=== PATIENT | female | born 1950 | race African-American/Black ===

== ENCOUNTER 2020-06-23 12:23 | Inpatient (IN) | payer MEDICARE, MEDICAID ==
[2020-06-23] VITALS (7 sets, daily range): BP systolic 111–130; BP diastolic 68–78
[~2020-06-23] VITALS: Ht 165.1 cm; Wt 73.5 kg
[2020-06-23 15:16] LABS: HEMATOCRIT. 35.8 % (36.0-48.0); HEMOGLOBIN. 11.7 g/dL (12.0-16.0); MEAN CORPUSCULAR HEMOGLOBIN 26.5 pg (28.0-32.0); MEAN CORPUSCULAR VOLUME 81.1 fL (81.0-99.0); MEAN PLATELET VOLUME 6.4 fl (7.4-10.4); PLATELET 281 x1000/uL (130-400); RED BLOOD CELL COUNT 4.41 mill/uL (4.2-5.4); RED CELL DISTRIBUTION WIDTH 17.5 % (11.6-14.6)
[2020-06-23 15:20] LABS: CHLORIDE 105 mEq/L (98-107)
[2020-06-23 16:13] LABS: PLATELET ESTIMATE NORMAL
[2020-06-23] MEDS ORDERED: GADOTERATE MEGLUMINE 5 MMOL/10 ML VIAL IV ONE (19:12)
[2020-06-23] MEDS ORDERED: HYDRALAZINE 20MG/ML VIAL IV PRN (21:15)
[2020-06-23] MEDS ORDERED: ONDANSETRON HCL 4MG/2ML INJ IV PRN (21:15)
[2020-06-23] MEDS ORDERED: NICARDIPINE 100 MG in SODIUM CHLORIDE 0.9% 60 ML IV PRN (21:30)
[2020-06-23 21:58] LABS: BASOPHILS % 0.2 % (0.0-2.0); EOSINOPHILS % 2.1 % (0.0-5.0); HEMATOCRIT. 33.4 % (36.0-48.0); HEMOGLOBIN. 11.3 g/dL (12.0-16.0); LYMPHOCYTES % 14.1 % (20.0-50.0); MEAN CORPUSCULAR HEMOGLOBIN 27.6 pg (28.0-32.0); MEAN CORPUSCULAR VOLUME 81.7 fL (81.0-99.0); MEAN PLATELET VOLUME 6.4 fl (7.4-10.4); MONOCYTES % 7.8 % (2.0-8.0); NEUTROPHILS % 75.8 % (40.0-76.0); PLATELET 274 x1000/uL (130-400); RED BLOOD CELL COUNT 4.08 mill/uL (4.2-5.4); RED CELL DISTRIBUTION WIDTH 17.6 % (11.6-14.6)
[2020-06-23] MEDS: DEXT 5%/LACTATED RINGERS 1,000 ML IV SCH (22:12)
[2020-06-23 22:23] LABS: CHLORIDE 104 mEq/L (98-107)
[2020-06-23] MEDS ORDERED: ATOR10TA MT (22:30)
[2020-06-23] MEDS ORDERED: FLUO10CA28 MT (22:30)
[2020-06-23] MEDS: LEVETIRACETAM 500MG PREMIX 100 ML IV SCH (22:54)
[2020-06-23] MEDS: DEXAMETHASONE 4MG/ML 1ML VIAL IV SCH (23:00)
[2020-06-24] VITALS (48 sets, daily range): BP systolic 84–140; BP diastolic 16–100
[2020-06-24] MEDS: DEXAMETHASONE 4MG/ML 1ML VIAL IV SCH ×3 (05:11→17:51)
[2020-06-24] MEDS: LEVETIRACETAM 500MG PREMIX 100 ML IV SCH ×2 (08:58→20:26)
[2020-06-24 11:13] LABS: *BENZODIAZEPINES SCREEN URINE NEGATIVE (NEGATIVE); *COCAINE SCREEN URINE NEGATIVE (NEGATIVE)
[2020-06-24 11:14] LABS: *AMPHETAMINES SCREEN URINE NEGATIVE (NEGATIVE); *BARBITURATES SCREEN URINE NEGATIVE (NEGATIVE); CANNABINOID URINE SCREEN NEGATIVE (NEGATIVE); METHADONE URINE SCREEN NEGATIVE (NEGATIVE); OPIATES URINE SCREEN NEGATIVE (NEGATIVE); PHENCYCLIDINE URINE SCREEN NEGATIVE (NEGATIVE)
[2020-06-24] MEDS: ACETAMINOPHEN 325MG TABLET PO PRN (14:52)
[2020-06-24] MEDS: DEXT 5%/LACTATED RINGERS 1,000 ML IV SCH ×2 (14:53→21:00)
[2020-06-24] MEDS ORDERED: OMEP20TA15 MT (19:52)
[2020-06-24] MEDS: OMEPRAZOLE 20MG CAPSULE EXTENDED RELEASE PO SCH (20:26)
[2020-06-25] VITALS (52 sets, daily range): BP systolic 90–141; BP diastolic 46–95
[2020-06-25] MEDS ORDERED: IOHEXOL-300 100 ML BOTTLE ONE ×2 (00:56→02:10)
[2020-06-25] MEDS: DEXAMETHASONE 4MG/ML 1ML VIAL IV SCH ×4 (01:18→18:25)
[2020-06-25] MEDS: OMEPRAZOLE 20MG CAPSULE EXTENDED RELEASE PO SCH (05:21)
[2020-06-25 05:43] LABS: HEMATOCRIT. 33.4 % (36.0-48.0); HEMOGLOBIN. 10.9 g/dL (12.0-16.0); MEAN CORPUSCULAR HEMOGLOBIN 26.5 pg (28.0-32.0); MEAN CORPUSCULAR VOLUME 81.1 fL (81.0-99.0); MEAN PLATELET VOLUME 6.7 fl (7.4-10.4); PLATELET 278 x1000/uL (130-400); RED BLOOD CELL COUNT 4.11 mill/uL (4.2-5.4)
[2020-06-25 05:50] LABS: CHLORIDE 105 mEq/L (98-107)
[2020-06-25] MEDS: LEVETIRACETAM 500MG PREMIX 100 ML IV SCH ×2 (09:33→22:04)
[2020-06-25] MEDS: MORPHINE SULFATE 2 MG/ML CPJ (NOT FOR IM USE) IV PRN ×2 (11:39→19:03)
[2020-06-25 13:26] LABS: PROTHROMBIN TIME 10.9 sec (9.6-11.0)
[2020-06-25 13:47] LABS: PLATELET ESTIMATE NORMAL
[2020-06-25] MEDS: DEXT 5%/LACTATED RINGERS 1,000 ML IV SCH (19:00)
[2020-06-26] VITALS (70 sets, daily range): BP systolic 66–156; BP diastolic 26–97
[2020-06-26] MEDS: DEXAMETHASONE 4MG/ML 1ML VIAL IV SCH ×2 (01:22→13:51)
[2020-06-26] MEDS: MORPHINE SULFATE 2 MG/ML CPJ (NOT FOR IM USE) IV PRN ×5 (01:29→22:21)
[2020-06-26 05:41] LABS: HEMATOCRIT. 32.7 % (36.0-48.0); HEMOGLOBIN. 10.5 g/dL (12.0-16.0); MEAN CORPUSCULAR VOLUME 81.4 fL (81.0-99.0); MEAN PLATELET VOLUME 6.8 fl (7.4-10.4); PLATELET 293 x1000/uL (130-400); RED BLOOD CELL COUNT 4.02 mill/uL (4.2-5.4); RED CELL DISTRIBUTION WIDTH 17.8 % (11.6-14.6)
[2020-06-26 05:54] LABS: CHLORIDE 106 mEq/L (98-107)
[2020-06-26] MEDS: OMEPRAZOLE 20MG CAPSULE EXTENDED RELEASE PO SCH (06:30)
[2020-06-26] MEDS ORDERED: BACITRACIN 15GM TUBE TOP ONE (07:20)
[2020-06-26] MEDS ORDERED: BACITRACIN 50,000 UNITS/VIAL ONE (07:21)
[2020-06-26] MEDS ORDERED: THROMBIN (BOVINE) 5000 UNITS/VIAL TOP ONE (07:21)
[2020-06-26] MEDS: LEVETIRACETAM 500MG PREMIX 100 ML IV SCH ×2 (07:56→20:13)
[2020-06-26 10:16] LABS: PLATELET ESTIMATE NORMAL
[2020-06-26] MEDS ORDERED: NEOSTIGMINE METHYLSULFATE 1MG/ML 10 ML VIAL ONE (10:51)
[2020-06-26] MEDS ORDERED: MIDAZOLAM HCL 2 MG/2 ML VIAL ONE (10:51)
[2020-06-26] MEDS ORDERED: ROCURONIUM BROMIDE 10MG/ML VIAL 5ML IV ONE ×2 (10:51→10:52)
[2020-06-26] MEDS ORDERED: PROPOFOL 200MG/20ML VIAL IV ONE (10:51)
[2020-06-26] MEDS ORDERED: FENTANYL CITRATE/PF 50MCG/ML 2ML VIAL ONE (10:51)
[2020-06-26] MEDS ORDERED: GLYCOPYRROLATE 0.2 MG/ML 2ML VIAL ONE ×3 (10:51→12:30)
[2020-06-26] MEDS ORDERED: DEXAMETHASONE 4MG/ML 1ML VIAL ONE (11:04)
[2020-06-26] MEDS ORDERED: MANNITOL 20% 500 ML IV ONE (11:37)
[2020-06-26] MEDS ORDERED: ONDANSETRON HCL 4MG/2ML INJ ONE (11:44)
[2020-06-26] MEDS: CEFAZOLIN 1000MG PREMIX 50 ML IV SCH ×2 (13:42→21:34)
[2020-06-26] MEDS ORDERED: CEFAZOLIN SODIUM 1000MG/VIAL IV SCH (14:00)
[2020-06-26] MEDS: DEXT 5%/LACTATED RINGERS 1,000 ML IV SCH (16:10)
[2020-06-27] VITALS (93 sets, daily range): BP systolic 82–212; BP diastolic 41–151
[2020-06-27] MEDS: MORPHINE SULFATE 2 MG/ML CPJ (NOT FOR IM USE) IV PRN ×3 (01:54→06:04)
[2020-06-27] MEDS: OMEPRAZOLE 20MG CAPSULE EXTENDED RELEASE PO SCH (05:30)
[2020-06-27] MEDS: CEFAZOLIN 1000MG PREMIX 50 ML IV SCH ×3 (06:00→21:25)
[2020-06-27 07:49] LABS: BG BASE EXCESS 2.3 mmol/L (-2.0-2.0); BG CARBOXYHEMOGLOBIN 0.3 % (0.5-1.5); BG DEOXYHEMOGLOBIN 1.4 % (0.0-5.0); BG HCO3 ACT 27.1 mmol/L (22.0-26.0); BG METHEMOGLOBIN 0.3 % (0.0-1.5); BG OXYGEN SATURATION 98.6 % (92.0-98.5); BG PH 7.417 (7.350-7.450); BG PO2 153.6 mmHg (75.0-100.0); BG SAMPLE SITE ALINE; BG TOTAL HEMOGLOBIN 10.6 g/dL (12.0-18.0); BG VENT MODE VENT - AC
[2020-06-27] MEDS: MORPHINE SULFATE 4 MG/ML CPJ (NOT FOR IM USE) IV PRN ×6 (08:34→23:48)
[2020-06-27] MEDS: LEVETIRACETAM 500MG PREMIX 100 ML IV SCH ×2 (08:34→20:28)
[2020-06-27] MEDS: DEXT 5%/LACTATED RINGERS 1,000 ML IV SCH (09:13)
[2020-06-27 10:42] LABS: BG BASE EXCESS 3.1 mmol/L (-2.0-2.0); BG CARBOXYHEMOGLOBIN 0.3 % (0.5-1.5); BG DEOXYHEMOGLOBIN 1.3 % (0.0-5.0); BG FRACTION INSPIRED OXYGEN 50; BG HCO3 ACT 27.2 mmol/L (22.0-26.0); BG METHEMOGLOBIN 0.3 % (0.0-1.5); BG OXYGEN SATURATION 98.7 % (92.0-98.5); BG OXYHEMOGLOBIN 98.1 % (94.0-97.0); BG PCO2 39.8 mmHg (35.0-45.0); BG PH 7.453 (7.350-7.450); BG PO2 154.1 mmHg (75.0-100.0); BG SAMPLE SITE ALINE; BG VENT MODE VENT - CPAP
[2020-06-28] VITALS (47 sets, daily range): BP systolic 79–152; BP diastolic 47–114
[2020-06-28] MEDS: DEXT 5%/LACTATED RINGERS 1,000 ML IV SCH (03:14)
[2020-06-28] MEDS: MORPHINE SULFATE 4 MG/ML CPJ (NOT FOR IM USE) IV PRN ×5 (04:10→23:51)
[2020-06-28] MEDS: CEFAZOLIN 1000MG PREMIX 50 ML IV SCH ×2 (05:31→14:59)
[2020-06-28] MEDS: OMEPRAZOLE 20MG CAPSULE EXTENDED RELEASE PO SCH (05:31)
[2020-06-28] MEDS: LEVETIRACETAM 500MG PREMIX 100 ML IV SCH ×2 (09:28→20:58)
[2020-06-29] VITALS (25 sets, daily range): BP systolic 102–126; BP diastolic 53–76
[2020-06-29 05:55] LABS: CHLORIDE 103 mEq/L (98-107)
[2020-06-29 05:57] LABS: HEMATOCRIT. 30.9 % (36.0-48.0); HEMOGLOBIN. 10.1 g/dL (12.0-16.0); MEAN CORPUSCULAR HEMOGLOBIN 26.9 pg (28.0-32.0); MEAN CORPUSCULAR VOLUME 81.8 fL (81.0-99.0); MEAN PLATELET VOLUME 6.8 fl (7.4-10.4); PLATELET 265 x1000/uL (130-400); RED BLOOD CELL COUNT 3.77 mill/uL (4.2-5.4); RED CELL DISTRIBUTION WIDTH 17.6 % (11.6-14.6)
[2020-06-29] MEDS: OMEPRAZOLE 20MG CAPSULE EXTENDED RELEASE PO SCH (06:21)
[2020-06-29] MEDS: LEVETIRACETAM 500MG PREMIX 100 ML IV SCH ×2 (09:53→20:23)
[2020-06-29 12:58] LABS: PLATELET ESTIMATE NORMAL
[2020-06-29] MEDS: MORPHINE SULFATE 4 MG/ML CPJ (NOT FOR IM USE) IV PRN ×3 (14:12→22:17)
[2020-06-30] VITALS (16 sets, daily range): BP systolic 102–129; BP diastolic 30–74
[2020-06-30] MEDS: MORPHINE SULFATE 4 MG/ML CPJ (NOT FOR IM USE) IV PRN (03:48)
[2020-06-30 05:20] LABS: HEMATOCRIT. 31.2 % (36.0-48.0); HEMOGLOBIN. 10.2 g/dL (12.0-16.0); MEAN CORPUSCULAR HEMOGLOBIN 26.8 pg (28.0-32.0); MEAN CORPUSCULAR VOLUME 81.8 fL (81.0-99.0); MEAN PLATELET VOLUME 6.8 fl (7.4-10.4); PLATELET 269 x1000/uL (130-400); RED BLOOD CELL COUNT 3.82 mill/uL (4.2-5.4); RED CELL DISTRIBUTION WIDTH 17.8 % (11.6-14.6)
[2020-06-30 05:31] LABS: CHLORIDE 103 mEq/L (98-107)
[2020-06-30] MEDS: OMEPRAZOLE 20MG CAPSULE EXTENDED RELEASE PO SCH (05:41)
[2020-06-30] MEDS: LEVETIRACETAM 500MG PREMIX 100 ML IV SCH ×2 (09:11→21:53)
[2020-06-30] MEDS: DOCUSATE SODIUM 100MG CAPSULE PO SCH (09:11)
[2020-06-30] MEDS: MORPHINE SULFATE 2 MG/ML CPJ (NOT FOR IM USE) IV PRN ×2 (09:13→16:04)
[2020-06-30 11:28] LABS: PLATELET ESTIMATE NORMAL
[2020-06-30] MEDS ORDERED: HYDRALAZINE 10 MG in SODIUM CHLORIDE 0.9% 49.5 ML IV PRN (11:45)
[2020-06-30] MEDS: ACETAMINOPHEN 325MG TABLET PO PRN ×2 (16:08→21:53)
[2020-07-01] VITALS: BP 93/56
[2020-07-01 04:00] VITALS: BP 102/66
[2020-07-01] MEDS: ACETAMINOPHEN 325MG TABLET PO PRN ×2 (06:33→14:22)
[2020-07-01] MEDS: OMEPRAZOLE 20MG CAPSULE EXTENDED RELEASE PO SCH (06:34)
[2020-07-01 08:00] VITALS: BP 118/75
[2020-07-01] MEDS: DOCUSATE SODIUM 100MG CAPSULE PO SCH (09:50)
[2020-07-01] MEDS: LEVETIRACETAM 500MG PREMIX 100 ML IV SCH (10:40)
[2020-07-01 12:00] VITALS: BP 111/70
[2020-07-01 13:45] VITALS: BP 111/70
[2020-07-01] MEDS ORDERED: GADOTERATE MEGLUMINE 5 MMOL/10 ML VIAL IV ONE (13:58)
== END 2020-07-01 14:46 | DRG 25 ==
LOC: ER 12:46 → EDBEDREQ 17:27 → EDBEDREQSVC 17:27 → EDBEDREQTM 17:27 → EDBEDREQSVC 17:28 → EDBEDREQTM 17:28 → 3WST 17:32 → ENRESERV 19:57 → MICUSO 20:30 → 6EST 06-30 11:15
PROVIDERS: ADMIT Internal Medicine; ATTEND Internal Medicine
PROC: 00B00ZZ Excision of Brain, Open Approach (ICD-10-PCS; principal; 2020-06-26)
PROC: 0NR007Z Replacement of Skull with Autologous Tissue Substitute, Open Approach (ICD-10-PCS; 2020-06-26)
PROC: 00U207Z Supplement Dura Mater with Autologous Tissue Substitute, Open Approach (ICD-10-PCS; 2020-06-26)
PROC: 02HV33Z Insertion of Infusion Device into Superior Vena Cava, Percutaneous Approach (ICD-10-PCS; 2020-06-29)
PROC: B548ZZA Ultrasonography of Superior Vena Cava, Guidance (ICD-10-PCS; 2020-06-29)
DX: C79.31 Secondary malignant neoplasm of brain (principal); J96.00 Acute respiratory failure, unspecified whether with hypoxia or hypercapnia; G93.41 Metabolic encephalopathy; C34.90 Malignant neoplasm of unspecified part of unspecified bronchus or lung; F32.9 Major depressive disorder, single episode, unspecified; I10 Essential (primary) hypertension; R73.9 Hyperglycemia, unspecified; K21.9 Gastro-esophageal reflux disease without esophagitis; R26.9 Unspecified abnormalities of gait and mobility; Z20.822 Contact with and (suspected) exposure to COVID-19; G90.8 Other disorders of autonomic nervous system; Z51.5 Encounter for palliative care; J44.9 Chronic obstructive pulmonary disease, unspecified; Z85.118 Personal history of other malignant neoplasm of bronchus and lung; Z56.0 Unemployment, unspecified; Z87.891 Personal history of nicotine dependence; Z91.81 History of falling; Z92.3 Personal history of irradiation; Z98.1 Arthrodesis status
CPT/HCPCS: 36415; 36600; 70551; 70553; 71045; 71260; 74176; 76937; 76998; 80048; 80053; 80061; 80305; 82375; 82378; 82805; 83605; 83880; 84145; 84443; 84484; 85025; 86850; 86900; 87426; 88309; 88331; 92523; 92610; 93005; 93306; 93880; 94003; 97162; 97166; 97530; 97535; 99285; A6261; A9577; C1713; C1725; C1758; C1893; J0690; J1100; J1953; J2250; J2270; J2405; J2704; J2710; J3010; J3490; J7040; J7050; J7120; J7121; Q9967

== ENCOUNTER 2021-03-09 09:56 | Inpatient (IN) | payer MEDICARE, MEDICAID ==
[~2021-03-09] VITALS: Ht 165.1 cm; Wt 67.1 kg
[~2021-03-09 09:56] MED LIST: ATOR10TA MT; FLUO10CA28 MT; KEPP500 PO; MED4 MT; OMEP20TA15 MT
[2021-03-09 11:29] LABS: CLARITY URINE CLEAR (CLEAR); COLOR URINE YELLOW (YELLOW); KETONES URINE NEGATIVE (NEGATIVE); LEUKOCYTE ESTERASE URINE NEGATIVE (NEGATIVE); NITRITE URINE NEGATIVE (NEGATIVE); OCCULT BLOOD URINE TRACE (NEGATIVE); PH URINE 6.5 (4.5-8.0); PROTEIN URINE TRACE (NEGATIVE); SPECIFIC GRAVITY URINE 1.016 (1.005-1.030)
[2021-03-09 11:49] LABS: BASOPHILS % 0.5 % (0.0-2.0); EOSINOPHILS % 0.7 % (0.0-5.0); HEMATOCRIT. 30.8 % (36.0-48.0); HEMOGLOBIN. 9.5 g/dL (12.0-16.0); LYMPHOCYTES % 12.5 % (20.0-50.0); MEAN CORPUSCULAR HEMOGLOBIN 22.9 pg (28.0-32.0); MEAN CORPUSCULAR VOLUME 73.9 fL (81.0-99.0); MEAN PLATELET VOLUME 6.4 fl (7.4-10.4); MONOCYTES % 4.9 % (2.0-8.0); NEUTROPHILS % 81.4 % (40.0-76.0); PLATELET 633 x1000/uL (130-400); RED BLOOD CELL COUNT 4.16 mill/uL (4.2-5.4)
[2021-03-09 11:56] LABS: CHLORIDE 106 mEq/L (98-107)
[2021-03-09] MEDS ORDERED: ACETAMINOPHEN 325MG TABLET PO ONE (12:15)
[2021-03-09] MEDS ORDERED: MAGNESIUM/ALUMINUM HYDROXIDE/SIMETHICONE 30ML UDC PO ONE (15:00)
[2021-03-09] MEDS ORDERED: CLONIDINE 0.1MG TABLET PO PRN (17:00)
[2021-03-09] MEDS ORDERED: LEVOFLOXACIN 750MG PREMIX 150 ML IV ONE (17:00)
[2021-03-09] MEDS: METHYLPREDNISOLONE SOD SUCC 40 MG/ML VIAL IV SCH (17:00)
[2021-03-09] MEDS: SODIUM CHLORIDE 0.9% 1,000 ML IV SCH (17:00)
[2021-03-09] MEDS ORDERED: ONDANSETRON HCL 4MG/2ML INJ IV PRN (17:00)
[2021-03-09] MEDS: AZITHROMYCIN 500 MG TABLET PO SCH (17:15)
[2021-03-09] MEDS ORDERED: CEFTRIAXONE 2 G PREMIX 50 ML IV SCH (17:15)
[2021-03-09] MEDS ORDERED: CEFTRIAXONE 1,000 MG in DEXTROSE 5% WATER 50 ML IV SCH (18:00)
[2021-03-09] MEDS: ACETAMINOPHEN 325MG TABLET PO PRN (20:15)
[2021-03-09] MEDS: ENOXAPARIN 40MG/0.4ML SYR SUBCUT SCH (22:42)
[2021-03-09] MEDS: MORPHINE SULFATE 2 MG/ML CPJ (NOT FOR IM USE) IV PRN (23:20)
[2021-03-09 23:32] LABS: CREATINE KINASE 47 IU/L (26-192); CREATINE KINASE MB FRACTION < 1.0 ng/mL (0.5-3.6)
[2021-03-10] VITALS: BP 95/56
[2021-03-10] MEDS: SODIUM CHLORIDE 0.9% 1,000 ML IV SCH ×3 (00:02→17:10)
[2021-03-10] MEDS: METHYLPREDNISOLONE SOD SUCC 40 MG/ML VIAL IV SCH ×3 (00:03→17:09)
[2021-03-10] MEDS: IPRATROPIUM/ALBUTEROL 0.5-3(2.5)MG/3ML NEB HHN SCH ×6 (00:45→20:31)
[2021-03-10 01:04] VITALS: BP 111/62
[2021-03-10 06:52] LABS: HEMATOCRIT. 27.7 % (36.0-48.0); HEMOGLOBIN. 8.7 g/dL (12.0-16.0); MEAN CORPUSCULAR HEMOGLOBIN 23.6 pg (28.0-32.0); MEAN CORPUSCULAR VOLUME 74.6 fL (81.0-99.0); MEAN PLATELET VOLUME 6.6 fl (7.4-10.4); PLATELET 575 x1000/uL (130-400); RED BLOOD CELL COUNT 3.71 mill/uL (4.2-5.4); RED CELL DISTRIBUTION WIDTH 20.2 % (11.6-14.6)
[2021-03-10 06:57] LABS: CHLORIDE 107 mEq/L (98-107)
[2021-03-10 07:13] LABS: CREATINE KINASE 47 IU/L (26-192)
[2021-03-10 07:15] LABS: CREATINE KINASE MB FRACTION < 1.0 ng/mL (0.5-3.6)
[2021-03-10 08:00] VITALS: BP 128/65
[2021-03-10] MEDS: AZITHROMYCIN 500 MG TABLET PO SCH (09:34)
[2021-03-10] MEDS ORDERED: NALOXONE HCL 0.4MG/ML VIAL IV PRN (10:00)
[2021-03-10] MEDS: HYDROCODONE/ACETAMINOPHEN 10/325MG TABLET PO PRN ×3 (10:26→20:50)
[2021-03-10 11:10] LABS: BG BASE EXCESS 1.9 mmol/L (-2.0-2.0); BG CARBOXYHEMOGLOBIN 0.4 % (0.5-1.5); BG DEOXYHEMOGLOBIN 6.1 % (0.0-5.0); BG FRACTION INSPIRED OXYGEN 21; BG HCO3 ACT 25.9 mmol/L (22.0-26.0); BG METHEMOGLOBIN 0.3 % (0.0-1.5); BG OXYGEN SATURATION 93.9 % (92.0-98.5); BG OXYHEMOGLOBIN 93.2 % (94.0-97.0); BG PCO2 37.9 mmHg (35.0-45.0); BG PH 7.453 (7.350-7.450); BG PO2 69.6 mmHg (75.0-100.0); BG SAMPLE SITE LEFT BRACHIAL; BG TOTAL HEMOGLOBIN 9.3 g/dL (12.0-18.0); BG VENT MODE ROOM AIR
[2021-03-10 11:32] LABS: INR 1.1; PROTHROMBIN TIME 12.1 sec (9.6-11.0)
[2021-03-10 12:00] VITALS: BP 109/64
[2021-03-10 16:00] VITALS: BP 106/44
[2021-03-10 16:56] LABS: PLATELET ESTIMATE INCREASED
[2021-03-10] MEDS: CEFTRIAXONE 2 G in DEXTROSE 5% WATER 50 ML IV SCH ×2 (17:04→17:11)
[2021-03-10 20:00] VITALS: BP 118/62
[2021-03-10] MEDS: ENOXAPARIN 40MG/0.4ML SYR SUBCUT SCH (20:38)
[2021-03-11] VITALS: BP 106/50
[2021-03-11] MEDS: METHYLPREDNISOLONE SOD SUCC 40 MG/ML VIAL IV SCH ×3 (00:17→17:12)
[2021-03-11] MEDS: SODIUM CHLORIDE 0.9% 1,000 ML IV SCH ×3 (00:19→17:23)
[2021-03-11] MEDS: IPRATROPIUM/ALBUTEROL 0.5-3(2.5)MG/3ML NEB HHN SCH ×5 (00:21→20:32)
[2021-03-11 04:00] VITALS: BP 121/64
[2021-03-11] MEDS: HYDROCODONE/ACETAMINOPHEN 10/325MG TABLET PO PRN ×3 (06:52→21:09)
[2021-03-11] MEDS ORDERED: SODIUM BICARBONATE 4% (2.4MEQ) 5ML VIAL IV ONE (07:35)
[2021-03-11 08:00] VITALS: BP 124/60
[2021-03-11] MEDS: AZITHROMYCIN 500 MG TABLET PO SCH (09:23)
[2021-03-11] MEDS: GUAIFENESIN/CODEINE 200-20MG/10ML UDC PO PRN ×2 (11:14→21:08)
[2021-03-11 12:00] VITALS: BP 139/71
[2021-03-11] MEDS: MORPHINE SULFATE 2 MG/ML CPJ (NOT FOR IM USE) IV PRN (12:09)
[2021-03-11 16:00] VITALS: BP 124/70
[2021-03-11] MEDS: CEFTRIAXONE 2 G in DEXTROSE 5% WATER 50 ML IV SCH (17:12)
[2021-03-11 20:00] VITALS: BP 141/65
[2021-03-11] MEDS: ENOXAPARIN 40MG/0.4ML SYR SUBCUT SCH (21:08)
[2021-03-12] VITALS: BP 139/68
[2021-03-12] MEDS: METHYLPREDNISOLONE SOD SUCC 40 MG/ML VIAL IV SCH ×3 (00:15→17:00)
[2021-03-12] MEDS: SODIUM CHLORIDE 0.9% 1,000 ML IV SCH ×3 (00:37→17:00)
[2021-03-12] MEDS: IPRATROPIUM/ALBUTEROL 0.5-3(2.5)MG/3ML NEB HHN SCH ×4 (02:14→22:17)
[2021-03-12] MEDS: HYDROCODONE/ACETAMINOPHEN 10/325MG TABLET PO PRN ×4 (02:32→21:01)
[2021-03-12 04:00] VITALS: BP 136/62
[2021-03-12 08:00] VITALS: BP 145/71
[2021-03-12] MEDS: GUAIFENESIN/CODEINE 200-20MG/10ML UDC PO PRN ×2 (08:35→16:24)
[2021-03-12] MEDS: AZITHROMYCIN 500 MG TABLET PO SCH (08:35)
[2021-03-12 12:00] VITALS: BP 159/87
[2021-03-12 16:00] VITALS: BP 120/68
[2021-03-12] MEDS: CEFTRIAXONE 2 G in DEXTROSE 5% WATER 50 ML IV SCH (17:00)
[2021-03-12 20:00] VITALS: BP 148/76
[2021-03-12] MEDS: ENOXAPARIN 40MG/0.4ML SYR SUBCUT SCH (20:45)
[2021-03-13] VITALS: BP 138/77
[2021-03-13] MEDS: METHYLPREDNISOLONE SOD SUCC 40 MG/ML VIAL IV SCH ×3 (02:04→18:47)
[2021-03-13] MEDS: SODIUM CHLORIDE 0.9% 1,000 ML IV SCH ×2 (02:04→16:12)
[2021-03-13] MEDS: HYDROCODONE/ACETAMINOPHEN 10/325MG TABLET PO PRN ×4 (02:11→20:08)
[2021-03-13] MEDS: IPRATROPIUM/ALBUTEROL 0.5-3(2.5)MG/3ML NEB HHN SCH ×4 (02:56→21:45)
[2021-03-13 04:00] VITALS: BP 152/84
[2021-03-13 08:00] VITALS: BP 158/76
[2021-03-13] MEDS: AZITHROMYCIN 500 MG TABLET PO SCH (08:16)
[2021-03-13 12:00] VITALS: BP 167/79
[2021-03-13 12:37] LABS: CHLORIDE 106 mEq/L (98-107)
[2021-03-13 16:00] VITALS: BP 138/72
[2021-03-13] MEDS ORDERED: ENOXAPARIN 30MG/0.3ML SYR SUBCUT NR (16:15)
[2021-03-13] MEDS ORDERED: ENOXAPARIN 100MG/ML SYR SUBCUT SCH (17:00)
[2021-03-13 17:32] LABS: HEMATOCRIT. 29.5 % (36.0-48.0); MEAN CORPUSCULAR HEMOGLOBIN 22.7 pg (28.0-32.0); MEAN CORPUSCULAR VOLUME 74.4 fL (81.0-99.0); MEAN PLATELET VOLUME 6.5 fl (7.4-10.4); PLATELET 663 x1000/uL (130-400); RED BLOOD CELL COUNT 3.97 mill/uL (4.2-5.4); RED CELL DISTRIBUTION WIDTH 21.3 % (11.6-14.6)
[2021-03-13 17:35] LABS: CHLORIDE 105 mEq/L (98-107)
[2021-03-13 17:39] LABS: INR 1.1; PROTHROMBIN TIME 11.4 sec (9.6-11.0)
[2021-03-13] MEDS: CEFTRIAXONE 2 G in DEXTROSE 5% WATER 50 ML IV SCH (17:50)
[2021-03-13] MEDS: LIDOCAINE 5% PATCH TOP SCH (17:51)
[2021-03-13 19:38] LABS: PLATELET ESTIMATE INCREASED
[2021-03-13 20:00] VITALS: BP 149/78
[2021-03-14] VITALS: BP 151/78
[2021-03-14] MEDS: HYDROCODONE/ACETAMINOPHEN 10/325MG TABLET PO PRN ×5 (00:35→21:28)
[2021-03-14] MEDS: IPRATROPIUM/ALBUTEROL 0.5-3(2.5)MG/3ML NEB HHN SCH ×4 (01:22→14:40)
[2021-03-14 04:00] VITALS: BP 155/74
[2021-03-14 08:00] VITALS: BP 148/85
[2021-03-14] MEDS: GUAIFENESIN/CODEINE 200-20MG/10ML UDC PO PRN (09:34)
[2021-03-14] MEDS: LIDOCAINE 5% PATCH TOP SCH (09:34)
[2021-03-14] MEDS: ENOXAPARIN 80MG/0.8ML SYR SUBCUT SCH ×2 (09:35→21:21)
[2021-03-14 12:00] VITALS: BP 122/72
[2021-03-14 16:00] VITALS: BP 139/77
[2021-03-14] MEDS: METHYLPREDNISOLONE SOD SUCC 40 MG/ML VIAL IV SCH (17:34)
[2021-03-14 20:00] VITALS: BP 146/83
[2021-03-14] MEDS ORDERED: MAGNESIUM/ALUMINUM HYDROXIDE/SIMETHICONE 30ML UDC PO PRN (20:30)
[2021-03-15] VITALS: BP 148/71
[2021-03-15] MEDS: HYDROCODONE/ACETAMINOPHEN 10/325MG TABLET PO PRN ×2 (01:20→06:33)
[2021-03-15] MEDS: IPRATROPIUM/ALBUTEROL 0.5-3(2.5)MG/3ML NEB HHN SCH ×2 (03:00→14:21)
[2021-03-15 04:00] VITALS: BP 133/64
[2021-03-15 08:00] VITALS: BP 126/66
[2021-03-15] MEDS: ENOXAPARIN 80MG/0.8ML SYR SUBCUT SCH (09:14)
[2021-03-15 12:00] VITALS: BP 136/80
[2021-03-15] MEDS: ACETAMINOPHEN 325MG TABLET PO PRN (12:42)
[2021-03-15] MEDS: LIDOCAINE 5% PATCH TOP SCH (12:43)
[2021-03-15 16:00] VITALS: BP 118/53
[2021-03-15] MEDS ORDERED: HYDROCODONE/ACETAMINOPHEN 10/325MG TABLET PO PRN (17:00)
[2021-03-15] MEDS: METHYLPREDNISOLONE SOD SUCC 40 MG/ML VIAL IV SCH (17:20)
[2021-03-15 18:12] VITALS: BP 118/60
== END 2021-03-15 18:50 | disposition home or self-care (01) | DRG 193 ==
LOC: ER 09:56 → EDBEDREQSVC 12:21 → EDBEDREQTM 12:21 → EDBEDREQ 12:21 → 7EST 12:57 → EDBEDREQ 13:45 → EDBEDREQTM 13:45 → ENRESERV 20:14
PROVIDERS: ADMIT Internal Medicine; ATTEND Internal Medicine
PROC: 0W993ZZ Drainage of Right Pleural Cavity, Percutaneous Approach (ICD-10-PCS; principal; 2021-03-11)
PROC: 5A09357 Assistance with Respiratory Ventilation, Less than 24 Consecutive Hours, Continuous Positive Airway Pressure (ICD-10-PCS; 2021-03-11)
DX: J18.1 Lobar pneumonia, unspecified organism (principal); E43 Unspecified severe protein-calorie malnutrition; J44.1 Chronic obstructive pulmonary disease with (acute) exacerbation; C34.90 Malignant neoplasm of unspecified part of unspecified bronchus or lung; C79.31 Secondary malignant neoplasm of brain; J44.0 Chronic obstructive pulmonary disease with (acute) lower respiratory infection; J90 Pleural effusion, not elsewhere classified; I82.C11 Acute embolism and thrombosis of right internal jugular vein; F32.A Depression, unspecified; Z20.822 Contact with and (suspected) exposure to COVID-19; D50.9 Iron deficiency anemia, unspecified; I10 Essential (primary) hypertension; K21.9 Gastro-esophageal reflux disease without esophagitis; R53.81 Other malaise; Z98.1 Arthrodesis status; Z79.899 Other long term (current) drug therapy; Z85.118 Personal history of other malignant neoplasm of bronchus and lung; Z87.891 Personal history of nicotine dependence; Z68.24 Body mass index [BMI] 24.0-24.9, adult
CPT/HCPCS: 32555; 36415; 36600; 71045; 71250; 73030; 80048; 80053; 81003; 82375; 82550; 82553; 82805; 83605; 84145; 84484; 85025; 87426; 93005; 93306; 93970; 94640; 97161; 99285; J0696; J1650; J1956; J2270; J2920; J3490; J7060